=== PATIENT | female | born 1945 | race Caucasian/White ===

== ENCOUNTER 2020-02-02 03:42 | Emergency (ER) | payer MEDICARE ==
[2020-02-02] MEDS ORDERED: EPINEPHrine 1 MG/10 ML Abboject SYRINGE ONE (08:50)
[2020-02-02] MEDS ORDERED: Amiodarone 150 MG/3 ML VIAL ONE (08:50)
== END 2020-02-02 06:26 | disposition expired ==
LOC: MADERS 03:42
DX: I46.9 Cardiac arrest, cause unspecified (principal); I48.91 Unspecified atrial fibrillation; I10 Essential (primary) hypertension; Z86.73 Personal history of transient ischemic attack (TIA), and cerebral infarction without residual deficits; Z85.828 Personal history of other malignant neoplasm of skin
CPT/HCPCS: 92950; J0171; J0282; J7070